=== PATIENT | female | born 1960 | race Caucasian/White ===

== ENCOUNTER → 2019-04-10 | Outpatient (CLI) | payer BC ==
[2019-04-10 12:23] LABS: BASO # 0.1 x10^3/uL (0.0-0.2); BASO % 1 % (0-3); EOS # 0.1 x10^3/uL (0.0-0.7); EOS % 1 % (0-3); HEMATOCRIT 36.3 % (36.0-47.0); HEMOGLOBIN 11.9 g/dL (12.0-15.5); LYMPH # 1.2 x10^3/uL (1.0-4.8); LYMPH % 16 % (24-48); MEAN CORPUSCULAR HEMOGLOBIN 30 pg (25-35); MEAN CORPUSCULAR HGB CONC 33 g/dL (31-37); MEAN CORPUSCULAR VOLUME 91 fL (79-100); MONO # 1.2 x10^3/uL (0.0-1.1); MONO % 15 % (0-9); NEUT % 67 % (31-73); PLATELET COUNT 367 x10^3/uL (140-400); RED BLOOD COUNT 3.98 x10^6/uL (3.50-5.40); RED CELL DISTRIBUTION WIDTH 14.3 % (11.5-14.5); WHITE BLOOD COUNT 7.5 x10^3/uL (4.0-11.0)
[2019-04-10 12:42] LABS: ALBUMIN 3.6 g/dL (3.4-5.0); ALBUMIN/GLOBULIN RATIO 0.9 (1.0-1.7); CALCIUM 9.1 mg/dL (8.5-10.1); GFR 57.1; POTASSIUM 3.9 mmol/L (3.5-5.1); TOTAL BILIRUBIN 0.5 mg/dL (0.2-1.0); TOTAL PROTEIN 7.6 g/dL (6.4-8.2)
[2019-04-10 12:43] LABS: CHOLESTEROL/HDL RATIO 2.7
[2019-04-10 12:53] LABS: FREE T4 0.94 ng/dL (0.76-1.46); THYROID STIM HORMONE (TSH) 4.681 uIU/mL (0.358-3.74)
== END | disposition home or self-care (01) ==
LOC: LAB 11:47
PROVIDERS: ATTEND Obstetrics & Gynecology
DX: Z01.411 Encounter for gynecological examination (general) (routine) with abnormal findings (principal); N95.2 Postmenopausal atrophic vaginitis; R19.03 Right lower quadrant abdominal swelling, mass and lump; I10 Essential (primary) hypertension
CPT/HCPCS: 36415; 80053; 80061; 84439; 84443; 85025

== ENCOUNTER → 2019-04-12 | Outpatient (CLI) | payer BC ==
--- NOTE | 2019-04-12 17:49 | RAD ---
PELVIS W/TV History: Right lower quadrant abdominal mass. Postmenopausal vaginitis. Comparison: None. Technique: Grayscale and color Doppler imaging of the pelvis was performed using transabdominal and transvaginal technique. Findings: The uterus measures 7.2 x 3.8 x 2.9 cm in length. Uterus has an unremarkable appearance. The endometrial stripe measures 0.4 mm. Bilateral ovaries not identified due to positioning and overlying bowel gas. Targeted ultrasound of the right lower quadrant anterior abdominal wall demonstrates small fat-containing hernia measures 0.9 cm. No adnexal masses are seen. No free fluid. IMPRESSION: 1. Right lower anterior abdominal wall fat-containing hernia. 2. Bilateral ovaries not identified. 3. Otherwise, unremarkable pelvic ultrasound. Electronically signed by: Danyel Roberts DO (04/12/2019 5:46 PM) [id number]
== END | disposition home or self-care (01) ==
LOC: US 15:24
PROVIDERS: ATTEND Obstetrics & Gynecology
DX: Z01.411 Encounter for gynecological examination (general) (routine) with abnormal findings (principal); K43.9 Ventral hernia without obstruction or gangrene; I10 Essential (primary) hypertension; N85.2 Hypertrophy of uterus; Z78.0 Asymptomatic menopausal state
CPT/HCPCS: 76830; 76856

== ENCOUNTER → 2019-05-03 | Outpatient (CLI) | payer BC ==
[~2019-05-03] MED LIST: CONTRAST GIVEN. MC PRN; IOHEXOL 240 MG/ML 50ML VIAL. PO ONE; IOHEXOL 300 MG/ML 100ML VIAL. IV ONE; LEVO75TA5 PO; NIFE30TA95 PO
--- NOTE | 2019-05-03 13:46 | RAD ---
PQRS Compliance Statement: One or more of the following individualized dose reduction techniques were utilized for this examination: 1. Automated exposure control 2. Adjustment of the mA and/or kV according to patient size 3. Use of iterative reconstruction technique CT abdomen/pelvis with contrast 05/03/2019 12:06 PM INDICATION: Inguinal hernia, abdominal wall hernia COMPARISON: None available TECHNIQUE: Multiple axial CT images of the abdomen and pelvis were obtained after the intravenous administration of 75 mL Omnipaque 300. Coronal and sagittal reformats are provided. FINDINGS: Pulmonary emphysematous changes are identified at the lung bases. There is a 7 mm solid noncalcified pulmonary nodule in the lateral right lower lobe (series 2, image 5). There is a small fat-containing posterior right diaphragmatic hernia. There is an oval solid noncalcified pulmonary nodule measuring 6 mm in the lateral left lower lobe (series 2, image 2). Heart size within normal limits. Liver, spleen, bilateral adrenal glands, pancreas and gallbladder are normal in appearance. Abdominal aorta is normal in course and caliber with dense calcified atheromatous plaque. There are no pathologically enlarged lymph nodes in abdomen and pelvis. There is no free fluid or free intraperitoneal air. Portal venous system appears widely patent. The kidneys enhance symmetrically. There is no suspicious renal mass. There is no hydronephrosis. There are no suspected calculi within the kidneys, ureters or urinary bladder. Mild bladder wall thickening may be secondary to underdistention versus chronic outlet obstruction. Uterus and adnexa are normal by CT. Colon is predominantly decompressed, limiting evaluation. Appendix is normal in appearance. Small to moderate-sized right inguinal hernia containing the appendix which is not inflamed. There is a small fat-containing umbilical hernia measuring 12 mm. No suspicious osseous abnormality is identified. There is moderate joint space narrowing the right hip with marginal osteophytosis and subcortical sclerosis and subcortical cystic change along the acetabulum suggestive of a to severe osteoarthrosis. There is a moderate-sized right hip joint effusion. IMPRESSION: 1. Small to moderate-sized right inguinal hernia containing a nondilated appendix. 2. Pulmonary emphysematous changes with solid noncalcified pulmonary nodules measuring up to 7 mm the right lateral lower lobe. 3-6 month follow-up chest CT is recommended to assess stability. 3. Moderate to severe right hip osteoarthrosis with moderate right hip joint effusion. Next on 4. Small umbilical hernia containing fat. Electronically signed by: Dianne Borges MD (05/03/2019 1:43 PM) [id number]
== END | disposition home or self-care (01) ==
LOC: CT 11:30
PROVIDERS: ATTEND Specialist
DX: K42.9 Umbilical hernia without obstruction or gangrene (principal); K40.90 Unilateral inguinal hernia, without obstruction or gangrene, not specified as recurrent; K44.9 Diaphragmatic hernia without obstruction or gangrene; J43.9 Emphysema, unspecified; R91.8 Other nonspecific abnormal finding of lung field; M16.11 Unilateral primary osteoarthritis, right hip; M25.451 Effusion, right hip; I70.0 Atherosclerosis of aorta
CPT/HCPCS: 74177; Q9966; Q9967

== ENCOUNTER → 2019-05-04 | Outpatient (CLI) | payer BC ==
[~2019-05-04] MED LIST changes: -CONTRAST GIVEN. MC PRN; -IOHEXOL 240 MG/ML 50ML VIAL. PO ONE; -IOHEXOL 300 MG/ML 100ML VIAL. IV ONE
[2019-05-04 13:55] LABS: BASO # 0.1 x10^3/uL (0.0-0.2); BASO % 1 % (0-3); EOS # 0.1 x10^3/uL (0.0-0.7); EOS % 2 % (0-3); HEMATOCRIT 37.3 % (36.0-47.0); HEMOGLOBIN 12.3 g/dL (12.0-15.5); LYMPH # 0.9 x10^3/uL (1.0-4.8); LYMPH % 11 % (24-48); MEAN CORPUSCULAR HEMOGLOBIN 29 pg (25-35); MEAN CORPUSCULAR HGB CONC 33 g/dL (31-37); MEAN CORPUSCULAR VOLUME 89 fL (79-100); MONO % 11 % (0-9); NEUT # 6.4 x10^3/uL (1.8-7.7); NEUT % 76 % (31-73); PLATELET COUNT 211 x10^3/uL (140-400); RED BLOOD COUNT 4.19 x10^6/uL (3.50-5.40); RED CELL DISTRIBUTION WIDTH 14.2 % (11.5-14.5); WHITE BLOOD COUNT 8.4 x10^3/uL (4.0-11.0)
[2019-05-04 14:07] LABS: PROTHROMBIN TIME PATIENT 11.9 SEC (11.7-14.0)
[2019-05-04 14:12] LABS: ALBUMIN 3.7 g/dL (3.4-5.0); ALBUMIN/GLOBULIN RATIO 0.9 (1.0-1.7); GFR 57.1; POTASSIUM 3.3 mmol/L (3.5-5.1); TOTAL BILIRUBIN 0.3 mg/dL (0.2-1.0); TOTAL PROTEIN 7.8 g/dL (6.4-8.2)
--- NOTE | 2019-05-07 06:40 | PREOP HP ---
DATE OF SERVICE: HISTORY OF PRESENT ILLNESS: The patient is referred by Stephane Bonner because of a mass that she has noted for 2-3 months in the right abdomen and groin. She states that this is becoming larger and she went to see her doctor about this and he sent her to me. She did have a sonogram, which showed a mass in the right lower quadrant of right anterior abdominal wall. She states that it contained fat, but she did not have a CT scan. PAST MEDICAL HISTORY: Shows normal childhood diseases. She does not have hypertension, diabetes, TB or asthma. Does take medicine recently just for thyroid condition, that she says she is hypothyroid. PAST SURGICAL HISTORY: She has never had surgery before and has no allergies to her knowledge. FAMILY HISTORY: Noncontributory. SOCIAL HISTORY: Shows that she was a heavy drinker, drank a lot of beer, got inebriated quite a bit, but has stopped that and is in a program for that. She did smoke a pack of cigarettes per day, but stopped that about 8 months ago and did not smoke since then and has never used illicit drugs. REVIEW OF SYSTEMS: Basically negative except for some anxiety. She does have a mass in the right abdomen, which hurts at times and this is mostly in the groin. PHYSICAL EXAMINATION: GENERAL: Shows an alert, nervous female in no acute distress. HEENT: Grossly normal. NECK: Supple. No goiter was noted. CHEST: Clear bilaterally to auscultation. BREASTS: Were not examined. HEART: Had normal heart tones with a regular rate. It was elevated at about 75-80 beats per minute. ABDOMEN: Grossly normal. No scars were noted, but in the inguinal area just medial to the pubis and along the internal inguinal tract, there is a mass which is increased and increased in intraabdominal pressure, you could see at greatest when she stood up. I did not try to reduce it as it was somewhat painful. The remainder of exam was negative. I think this is an inguinal hernia, not sure if this is direct or not, but the sonogram did say anterior abdominal wall in the right lower quadrant and I want to make certain about this. IMPRESSION: 1. Anxiety. 2. Right inguinal hernia. PLAN: The plan would be to repair the right inguinal hernia, but prior to this, we will get a CT of the abdomen to make certain there is no other hernia that needs to be fixed and no other abnormalities. I do not think this is a femoral hernia, but we would like to define it better before we do the surgery as the sonogram did say anterior abdominal wall in the lower abdomen on the right and this is more of an inguinal area, so we want to define this more clearly, so we can be precise at the time of surgery. JUSTIN MOYER MD DR: JOSETTE/agnes JOB#: [id number] / [id number]
== END | disposition home or self-care (01) ==
LOC: SURGPAT 12:29
PROVIDERS: ATTEND Specialist
DX: Z01.812 Encounter for preprocedural laboratory examination (principal); K40.90 Unilateral inguinal hernia, without obstruction or gangrene, not specified as recurrent
CPT/HCPCS: 36415; 80053; 85025; 85610

== ENCOUNTER → 2019-05-07 | Day surgery (SDC) | payer BC ==
[~2019-05-07] VITALS: Ht 170.2 cm; Wt 59.0 kg
[~2019-05-07] MED LIST changes: +BUPIVACAINE-EPI 0.5%-1:200000 MPF 30 ML VIAL. ONE; +DEXAMETHASONE SOD PHOS 4 MG/ML VIAL ONE; +GLYCOPYRROLATE 1 MG/5 ML VIAL. ONE; +HYDROcodone/APAP 7.5/325MG 1 TAB TABLET ONE; +HYDROcodone/APAP 7.5/325MG 1 TAB TABLET PO ONE; +HYDROmorphone 2 MG/ML VIAL IV PRN; +IPRATRPIUM/ALBUTEROL 0.5/2.5MG 3 ML NEBU. NEB ONE; +IV RINGERS,LACTATED 1000ML 1,000 ML IV SCH; +KETOROLAC 30 MG/ML VIAL. ONE; +LIDOCAINE 1% PF 2 ML VIAL. ID PRN; +LIDOCAINE 2% PF 5 ML VIAL. ONE; +MIDAZOLAM HCL/PF 2 MG/2 ML VIAL. ONE; +MORPHINE SULFATE 2 MG/ML VIAL. IV PRN; +NEOSTIGMINE METHYLSULFATE 5 MG/5 ML SYRINGE. ONE; +ONDANSETRON PF 4 MG/2 ML VIAL. IV PRN; +ONDANSETRON PF 4 MG/2 ML VIAL. ONE; +PROCHLORPERAZINE 10 MG/2 ML VIAL. IV PRN; +PROPOFOL 20 ML IV ONE; +ROCURONIUM 50 MG/5 ML VIAL. ONE; +SEVOFLURANE > 120 MINUTES. IH ONE; +ceFAZolin SODIUM IV Push 1 GM VIAL. IVP ONE; +fentaNYL PF VIAL 100 MCG/2 ML VIAL IV PRN; +fentaNYL PF VIAL 100 MCG/2 ML VIAL ONE
[2019-05-07 08:28] LABS: BASO # 0.1 x10^3/uL (0.0-0.2); BASO % 1 % (0-3); EOS # 0.1 x10^3/uL (0.0-0.7); EOS % 1 % (0-3); HEMATOCRIT 37.1 % (36.0-47.0); HEMOGLOBIN 12.4 g/dL (12.0-15.5); LYMPH # 0.7 x10^3/uL (1.0-4.8); LYMPH % 8 % (24-48); MEAN CORPUSCULAR HEMOGLOBIN 30 pg (25-35); MEAN CORPUSCULAR HGB CONC 33 g/dL (31-37); MEAN CORPUSCULAR VOLUME 89 fL (79-100); MONO # 1.5 x10^3/uL (0.0-1.1); MONO % 18 % (0-9); NEUT # 6.4 x10^3/uL (1.8-7.7); NEUT % 72 % (31-73); PLATELET COUNT 261 x10^3/uL (140-400); RED BLOOD COUNT 4.17 x10^6/uL (3.50-5.40); RED CELL DISTRIBUTION WIDTH 15.1 % (11.5-14.5); WHITE BLOOD COUNT 8.8 x10^3/uL (4.0-11.0)
[2019-05-07 08:36] LABS: CALCIUM 9.1 mg/dL (8.5-10.1); CREATININE 0.8 mg/dL (0.6-1.0); GFR 73.9; POTASSIUM 3.9 mmol/L (3.5-5.1)
[2019-05-07 08:42] LABS: ALBUMIN 3.8 g/dL (3.4-5.0); ALBUMIN/GLOBULIN RATIO 0.9 (1.0-1.7); TOTAL BILIRUBIN 0.6 mg/dL (0.2-1.0); TOTAL PROTEIN 7.9 g/dL (6.4-8.2)
[2019-05-07 08:53] LABS: PROTHROMBIN TIME PATIENT 12.2 SEC (11.7-14.0)
--- NOTE | 2019-05-07 09:33 | PDOC ---
SURGICAL PROGRESS NOTE Subjective NO CHANGE IN DICTATED H&P. Vital Signs Vital Signs Date Time Temp Pulse Resp B/P (MAP) Pulse Ox O2 Delivery O2 Flow Rate FiO2 05/07/19 08:00 98.0 95 18 165/90 96 Room Air 98.0 Labs Laboratory Tests Test 05/07/19 08:20 White Blood Count 8.8 x10^3/uL (4.0-11.0) Red Blood Count 4.17 x10^6/uL (3.50-5.40) Hemoglobin 12.4 g/dL (12.0-15.5) Hematocrit 37.1 % (36.0-47.0) Mean Corpuscular Volume 89 fL (79-100) Mean Corpuscular Hemoglobin 30 pg (25-35) Mean Corpuscular Hemoglobin Concent 33 g/dL (31-37) Red Cell Distribution Width 15.1 % (11.5-14.5) Platelet Count 261 x10^3/uL (140-400) Neutrophils (%) (Auto) 72 % (31-73) Lymphocytes (%) (Auto) 8 % (24-48) Monocytes (%) (Auto) 18 % (0-9) Eosinophils (%) (Auto) 1 % (0-3) Basophils (%) (Auto) 1 % (0-3) Neutrophils # (Auto) 6.4 x10^3/uL (1.8-7.7) Lymphocytes # (Auto) 0.7 x10^3/uL (1.0-4.8) Monocytes # (Auto) 1.5 x10^3/uL (0.0-1.1) Eosinophils # (Auto) 0.1 x10^3/uL (0.0-0.7) Basophils # (Auto) 0.1 x10^3/uL (0.0-0.2) Prothrombin Time 12.2 SEC (11.7-14.0) Prothromb Time International Ratio 0.9 (0.8-1.1) Activated Partial Thromboplast Time 28 SEC (24-38) Sodium Level 140 mmol/L (136-145) Potassium Level 3.9 mmol/L (3.5-5.1) Chloride Level 102 mmol/L (98-107) Carbon Dioxide Level 25 mmol/L (21-32) Anion Gap 13 (6-14) Blood Urea Nitrogen 11 mg/dL (7-20) Creatinine 0.8 mg/dL (0.6-1.0) Estimated GFR (Cockcroft-Gault) 73.9 BUN/Creatinine Ratio 14 (6-20) Glucose Level 90 mg/dL (70-99) Calcium Level 9.1 mg/dL (8.5-10.1) Total Bilirubin 0.6 mg/dL (0.2-1.0) Aspartate Amino Transf (AST/SGOT) 22 U/L (15-37) Alanine Aminotransferase (ALT/SGPT) 30 U/L (14-59) Alkaline Phosphatase 106 U/L (46-116) Total Protein 7.9 g/dL (6.4-8.2) Albumin 3.8 g/dL (3.4-5.0) Albumin/Globulin Ratio 0.9 (1.0-1.7) Laboratory Tests Test 05/07/19 08:20 White Blood Count 8.8 x10^3/uL (4.0-11.0) Red Blood Count 4.17 x10^6/uL (3.50-5.40) Hemoglobin 12.4 g/dL (12.0-15.5) Hematocrit 37.1 % (36.0-47.0) Mean Corpuscular Volume 89 fL (79-100) Mean Corpuscular Hemoglobin 30 pg (25-35) Mean Corpuscular Hemoglobin Concent 33 g/dL (31-37) Red Cell Distribution Width 15.1 % (11.5-14.5) Platelet Count 261 x10^3/uL (140-400) Neutrophils (%) (Auto) 72 % (31-73) Lymphocytes (%) (Auto) 8 % (24-48) Monocytes (%) (Auto) 18 % (0-9) Eosinophils (%) (Auto) 1 % (0-3) Basophils (%) (Auto) 1 % (0-3) Neutrophils # (Auto) 6.4 x10^3/uL (1.8-7.7) Lymphocytes # (Auto) 0.7 x10^3/uL (1.0-4.8) Monocytes # (Auto) 1.5 x10^3/uL (0.0-1.1) Eosinophils # (Auto) 0.1 x10^3/uL (0.0-0.7) Basophils # (Auto) 0.1 x10^3/uL (0.0-0.2) Prothrombin Time 12.2 SEC (11.7-14.0) Prothromb Time International Ratio 0.9 (0.8-1.1) Activated Partial Thromboplast Time 28 SEC (24-38) Sodium Level 140 mmol/L (136-145) Potassium Level 3.9 mmol/L (3.5-5.1) Chloride Level 102 mmol/L (98-107) Carbon Dioxide Level 25 mmol/L (21-32) Anion Gap 13 (6-14) Blood Urea Nitrogen 11 mg/dL (7-20) Creatinine 0.8 mg/dL (0.6-1.0) Estimated GFR (Cockcroft-Gault) 73.9 BUN/Creatinine Ratio 14 (6-20) Glucose Level 90 mg/dL (70-99) Calcium Level 9.1 mg/dL (8.5-10.1) Total Bilirubin 0.6 mg/dL (0.2-1.0) Aspartate Amino Transf (AST/SGOT) 22 U/L (15-37) Alanine Aminotransferase (ALT/SGPT) 30 U/L (14-59) Alkaline Phosphatase 106 U/L (46-116) Total Protein 7.9 g/dL (6.4-8.2) Albumin 3.8 g/dL (3.4-5.0) Albumin/Globulin Ratio 0.9 (1.0-1.7) JUSTIN MOYER MD May 07, 2019 09:33
--- NOTE | 2019-05-07 09:35 | PDOC ---
SURGICAL PROGRESS NOTE Subjective Op Note: Surgeon.................................................Mark Pre op diag............................................incar right inguinal hernia Post op diag..........................................Incarcerate right inguinal hernia Anesthesia............................................general Procedure.............................................repair incarcerated right inguinal hernia Drains................................................. none Blood loss............................................10ccv fluids....................................................see anesthesia sheet Condition..............................................satisfactory Vital Signs Vital Signs Date Time Temp Pulse Resp B/P (MAP) Pulse Ox O2 Delivery O2 Flow Rate FiO2 16/20 08:00 98.0 95 18 165/90 96 Room Air 98.0 Labs Laboratory Tests Test 05/07/19 08:20 White Blood Count 8.8 x10^3/uL (4.0-11.0) Red Blood Count 4.17 x10^6/uL (3.50-5.40) Hemoglobin 12.4 g/dL (12.0-15.5) Hematocrit 37.1 % (36.0-47.0) Mean Corpuscular Volume 89 fL (79-100) Mean Corpuscular Hemoglobin 30 pg (25-35) Mean Corpuscular Hemoglobin Concent 33 g/dL (31-37) Red Cell Distribution Width 15.1 % (11.5-14.5) Platelet Count 261 x10^3/uL (140-400) Neutrophils (%) (Auto) 72 % (31-73) Lymphocytes (%) (Auto) 8 % (24-48) Monocytes (%) (Auto) 18 % (0-9) Eosinophils (%) (Auto) 1 % (0-3) Basophils (%) (Auto) 1 % (0-3) Neutrophils # (Auto) 6.4 x10^3/uL (1.8-7.7) Lymphocytes # (Auto) 0.7 x10^3/uL (1.0-4.8) Monocytes # (Auto) 1.5 x10^3/uL (0.0-1.1) Eosinophils # (Auto) 0.1 x10^3/uL (0.0-0.7) Basophils # (Auto) 0.1 x10^3/uL (0.0-0.2) Prothrombin Time 12.2 SEC (11.7-14.0) Prothromb Time International Ratio 0.9 (0.8-1.1) Activated Partial Thromboplast Time 28 SEC (24-38) Sodium Level 140 mmol/L (136-145) Potassium Level 3.9 mmol/L (3.5-5.1) Chloride Level 102 mmol/L (98-107) Carbon Dioxide Level 25 mmol/L (21-32) Anion Gap 13 (6-14) Blood Urea Nitrogen 11 mg/dL (7-20) Creatinine 0.8 mg/dL (0.6-1.0) Estimated GFR (Cockcroft-Gault) 73.9 BUN/Creatinine Ratio 14 (6-20) Glucose Level 90 mg/dL (70-99) Calcium Level 9.1 mg/dL (8.5-10.1) Total Bilirubin 0.6 mg/dL (0.2-1.0) Aspartate Amino Transf (AST/SGOT) 22 U/L (15-37) Alanine Aminotransferase (ALT/SGPT) 30 U/L (14-59) Alkaline Phosphatase 106 U/L (46-116) Total Protein 7.9 g/dL (6.4-8.2) Albumin 3.8 g/dL (3.4-5.0) Albumin/Globulin Ratio 0.9 (1.0-1.7) Laboratory Tests Test 05/07/19 08:20 White Blood Count 8.8 x10^3/uL (4.0-11.0) Red Blood Count 4.17 x10^6/uL (3.50-5.40) Hemoglobin 12.4 g/dL (12.0-15.5) Hematocrit 37.1 % (36.0-47.0) Mean Corpuscular Volume 89 fL (79-100) Mean Corpuscular Hemoglobin 30 pg (25-35) Mean Corpuscular Hemoglobin Concent 33 g/dL (31-37) Red Cell Distribution Width 15.1 % (11.5-14.5) Platelet Count 261 x10^3/uL (140-400) Neutrophils (%) (Auto) 72 % (31-73) Lymphocytes (%) (Auto) 8 % (24-48) Monocytes (%) (Auto) 18 % (0-9) Eosinophils (%) (Auto) 1 % (0-3) Basophils (%) (Auto) 1 % (0-3) Neutrophils # (Auto) 6.4 x10^3/uL (1.8-7.7) Lymphocytes # (Auto) 0.7 x10^3/uL (1.0-4.8) Monocytes # (Auto) 1.5 x10^3/uL (0.0-1.1) Eosinophils # (Auto) 0.1 x10^3/uL (0.0-0.7) Basophils # (Auto) 0.1 x10^3/uL (0.0-0.2) Prothrombin Time 12.2 SEC (11.7-14.0) Prothromb Time International Ratio 0.9 (0.8-1.1) Activated Partial Thromboplast Time 28 SEC (24-38) Sodium Level 140 mmol/L (136-145) Potassium Level 3.9 mmol/L (3.5-5.1) Chloride Level 102 mmol/L (98-107) Carbon Dioxide Level 25 mmol/L (21-32) Anion Gap 13 (6-14) Blood Urea Nitrogen 11 mg/dL (7-20) Creatinine 0.8 mg/dL (0.6-1.0) Estimated GFR (Cockcroft-Gault) 73.9 BUN/Creatinine Ratio 14 (6-20) Glucose Level 90 mg/dL (70-99) Calcium Level 9.1 mg/dL (8.5-10.1) Total Bilirubin 0.6 mg/dL (0.2-1.0) Aspartate Amino Transf (AST/SGOT) 22 U/L (15-37) Alanine Aminotransferase (ALT/SGPT) 30 U/L (14-59) Alkaline Phosphatase 106 U/L (46-116) Total Protein 7.9 g/dL (6.4-8.2) Albumin 3.8 g/dL (3.4-5.0) Albumin/Globulin Ratio 0.9 (1.0-1.7) JUSTIN MOYER MD May 07, 2019 09:35
--- NOTE | 2019-05-07 09:36 | PREOP HP ---
DATE OF SERVICE: 05/07/2019 HISTORY OF PRESENT ILLNESS: The patient is referred by Stephane Bonner because of a mass that she has noted for 2-3 months in the right abdomen and groin. She states that this is becoming larger and she went to see her doctor about this and he sent her to me. She did have a sonogram, which showed a mass in the right lower quadrant of right anterior abdominal wall. She states that it contained fat, but she did not have a CT scan. PAST MEDICAL HISTORY: Shows normal childhood diseases. She does not have hypertension, diabetes, TB or asthma. Does take medicine recently just for thyroid condition, that she says she is hypothyroid. PAST SURGICAL HISTORY: She has never had surgery before and has no allergies to her knowledge. FAMILY HISTORY: Noncontributory. SOCIAL HISTORY: Shows that she was a heavy drinker, drank a lot of beer, got inebriated quite a bit, but has stopped that and is in a program for that. She did smoke a pack of cigarettes per day, but stopped that about 8 months ago and did not smoke since then and has never used illicit drugs. REVIEW OF SYSTEMS: Basically negative except for some anxiety. She does have a mass in the right abdomen, which hurts at times and this is mostly in the groin. PHYSICAL EXAMINATION: GENERAL: Shows an alert, nervous female in no acute distress. HEENT: Grossly normal. NECK: Supple. No goiter was noted. CHEST: Clear bilaterally to auscultation. BREASTS: Were not examined. HEART: Had normal heart tones with a regular rate. It was elevated at about 75-80 beats per minute. ABDOMEN: Grossly normal. No scars were noted, but in the inguinal area just medial to the pubis and along the internal inguinal tract, there is a mass which is increased and increased in intraabdominal pressure, you could see at greatest when she stood up. I did not try to reduce it as it was somewhat painful. The remainder of exam was negative. I think this is an inguinal hernia, not sure if this is direct or not, but the sonogram did say anterior abdominal wall in the right lower quadrant and I want to make certain about this. IMPRESSION: 1. Anxiety. 2. Right inguinal hernia. PLAN: The plan would be to repair the right inguinal hernia, but prior to this, we will get a CT of the abdomen to make certain there is no other hernia that needs to be fixed and no other abnormalities. I do not think this is a femoral hernia, but we would like to define it better before we do the surgery as the sonogram did say anterior abdominal wall in the lower abdomen on the right and this is more of an inguinal area, so we want to define this more clearly, so we can be precise at the time of surgery. JUSTIN OMYER MD DR: JOSETTE/nts JOB#: [id number] / [id number]
--- NOTE | 2019-05-07 12:25 | DISCH ---
DISCHARGE INSTRUCTIONS Condition on Discharge Condition on Discharge: Stable Activity After Discharge Activity Instructions for Disc: Avoid exertion Diet after Discharge Diet after Discharge: Clear Liquid Wound Incision Care Other wound/incision instructi: leave wound on and may shower Follow-Up Follow up with: call and make appt to see me in 14 days JUSTIN MOYER MD May 07, 2019 12:25
[2019-05-07 12:30] VITALS: BP 148/75
--- NOTE | 2019-05-08 00:39 | OP ---
DATE OF SURGERY: 05/07/2019 SURGEON: Sesar Moyer MD. PREOPERATIVE DIAGNOSIS: Incarcerated right inguinal hernia. POSTOPERATIVE DIAGNOSIS: Incarcerated right inguinal hernia. ANESTHESIA: General. PROCEDURE: Repair of incarcerated right inguinal hernia. TECHNIQUE: Under general anesthesia, the patient was properly prepped and draped in routine fashion. An incision was made, following the skin lines, in the right inguinal area with a 15 blade. We carried this down through the skin into the subcutaneous. We then went through the subcutaneous with Metzenbaum scissors and cautery down to the fascia. We then made a small incision in the direction of the fibers about 2-3 inches above the external inguinal ring. We then spread scissors under this and opened the external oblique aponeurosis. We cleaned the structures away from it, which was also the hernia sac from the medial and lateral edges of the Poupart's ligament. We then encircled the area at the pubic tubercle and then we were able to identify the sac, cut it away from the surrounding structures using Metzenbaum scissors and also pushing with gauze and had it completely freed up. We then inverted this, it did not appear to be a direct hernia, but indirect. We then inverted this and placed the extra-large PerFix plug there and sutured in place using 3-0 Vicryl. We then placed a patch over the area to keep the ilioinguinal nerve out of the area. We started the pubic tubercle with 0 Prolene, two of them ran, one laterally taking the shelving edge of Poupart's ligament well past the internal inguinal ring and the other one medially, taking the transversalis fascia with gauze and placing it back up to past the internal inguinal ring back to Poupart's ligament. We had a good posterior closure and reduction of the hernia with the PerFix plug and the procedure was basically terminated. We injected 0.5% Marcaine with epinephrine for pain control. We then irrigated the wound with saline. We then closed the external oblique aponeurosis using 2-0 Prolene. The subcutaneous was irrigated again with saline and approximated with 4-0 Vicryl and then the skin was closed using a subcuticular 5-0 Vicryl. The procedure was now terminated and sterile Tegaderm dressing was applied. All bleeding had stopped. The blood loss was less than 8-9 mL. Fluids given can be obtained from the anesthesia sheet. No drains were used and the condition of the patient was satisfactory as she was returned to the recovery room. It should be noted that the incarceration reduced once the patient was asleep and we got the sac mobilized, and we did not have any trouble reducing it at that point. The procedure was now terminated. SESAR MOYER MD DR: JOSETTE/agnes JOB#: [id number] / [id number]
== END ==
LOC: SURG 07:26
PROVIDERS: ATTEND Specialist
DX: K40.30 Unilateral inguinal hernia, with obstruction, without gangrene, not specified as recurrent (principal); I10 Essential (primary) hypertension; E11.9 Type 2 diabetes mellitus without complications; J45.909 Unspecified asthma, uncomplicated; F41.9 Anxiety disorder, unspecified; E03.9 Hypothyroidism, unspecified; Z72.89 Other problems related to lifestyle; Z79.01 Long term (current) use of anticoagulants; Z87.891 Personal history of nicotine dependence; Z79.84 Long term (current) use of oral hypoglycemic drugs
CPT/HCPCS: 36415; 49507; 80053; 85025; 85610; 85730; 94640; A7015; C1781; J0690; J1100; J1885; J2001; J2250; J2405; J2704; J2710; J3010; J3490; J7120

== ENCOUNTER → 2019-07-13 | Outpatient (CLI) | payer BC ==
[2019-05-07 12:30] VITALS: BP 148/75
[~2019-07-13] MED LIST changes: -BUPIVACAINE-EPI 0.5%-1:200000 MPF 30 ML VIAL. ONE; +CHLO1TAB PO; -DEXAMETHASONE SOD PHOS 4 MG/ML VIAL ONE; -GLYCOPYRROLATE 1 MG/5 ML VIAL. ONE; +HYDR-2765 PO; -HYDROcodone/APAP 7.5/325MG 1 TAB TABLET ONE; -HYDROcodone/APAP 7.5/325MG 1 TAB TABLET PO ONE; -HYDROmorphone 2 MG/ML VIAL IV PRN; -IPRATRPIUM/ALBUTEROL 0.5/2.5MG 3 ML NEBU. NEB ONE; -IV RINGERS,LACTATED 1000ML 1,000 ML IV SCH; -KETOROLAC 30 MG/ML VIAL. ONE; -LIDOCAINE 1% PF 2 ML VIAL. ID PRN; -LIDOCAINE 2% PF 5 ML VIAL. ONE; +LISI10TA2 PO; -MIDAZOLAM HCL/PF 2 MG/2 ML VIAL. ONE; -MORPHINE SULFATE 2 MG/ML VIAL. IV PRN; -NEOSTIGMINE METHYLSULFATE 5 MG/5 ML SYRINGE. ONE; -ONDANSETRON PF 4 MG/2 ML VIAL. IV PRN; -ONDANSETRON PF 4 MG/2 ML VIAL. ONE; -PROCHLORPERAZINE 10 MG/2 ML VIAL. IV PRN; -PROPOFOL 20 ML IV ONE; -ROCURONIUM 50 MG/5 ML VIAL. ONE; -SEVOFLURANE > 120 MINUTES. IH ONE; -ceFAZolin SODIUM IV Push 1 GM VIAL. IVP ONE; -fentaNYL PF VIAL 100 MCG/2 ML VIAL IV PRN; -fentaNYL PF VIAL 100 MCG/2 ML VIAL ONE
== END | disposition home or self-care (01) ==
LOC: SURGPAT 12:23
PROVIDERS: ATTEND Specialist
DX: Z01.818 Encounter for other preprocedural examination (principal); Z11.59 Encounter for screening for other viral diseases; K42.9 Umbilical hernia without obstruction or gangrene
CPT/HCPCS: C9803; U0003; 36415

== ENCOUNTER 2019-07-17 07:32 | Day surgery (SDC) | payer BC ==
[~2019-07-17] VITALS: Ht 167.6 cm; Wt 63.5 kg
--- NOTE | 2019-07-17 00:24 | HP ---
ADMIT DATE: HISTORY OF PRESENT ILLNESS: The patient comes to the hospital because of painful mass at the umbilicus. It gives her pain from time to time and she has been examined and found to have a hernia that needs repair. PAST MEDICAL HISTORY: Has included a, recent about 2 months ago, repair of a right inguinal hernia. She has done well since then and has no symptoms. She has had normal childhood diseases. She does note hypertension, heart disease, TB, asthma or other diseases to her knowledge. She did state to have a thyroid condition, and she stated that she was hypothyroid. PAST SURGICAL HISTORY: Has been the right inguinal hernia repair. FAMILY HISTORY: Noncontributory. SOCIAL HISTORY: Shows that she did drink a lot of beer and got inebriated, but she stopped that and is in a program for it. She did smoke about a pack of cigarettes a day, but she stopped about 9-12 months ago. REVIEW OF SYSTEMS: Review of systems was negative except for some pain at this mass, which she thought was normal at the umbilicus. She does have difficulties with increase in intraabdominal pressure and it was noted when she had the hernia repair. PHYSICAL EXAMINATION: GENERAL: Shows an alert female in no acute distress. She was somewhat nervous. HEAD, EYES, EARS, NOSE AND THROAT: Grossly normal. NECK: Supple, no goiter was noted. CHEST: Clear bilaterally to auscultation. BREASTS: Not examined. HEART: Had no friction rubs and the rate was 72 beats per minute and regular. ABDOMEN: No organomegaly was noted. There is a scar of her right inguinal hernia repair. No other scars. She did have a mass at the umbilicus, which could not be reduced and it was somewhat tender when palpated. She did not have an acute abdomen or anything to suggest peritoneal irritation. EXTREMITIES: Grossly normal. PELVIC: Not done. RECTAL: Not done. IMPRESSION: Umbilical hernia. Plan is to repair the umbilical hernia with her consent. She understands the risk of the surgery and some of the complications including infection and intra-abdominal bowel injury, which would be unlikely, but is always a possibility. JUSTIN MOYER MD DR: JOSETTE/agnes JOB#: [id number] / [id number]
[~2019-07-17 07:32] MED LIST changes: +BUPIVACAINE-EPI 0.5%-1:200000 MPF 30 ML VIAL. ONE; -HYDR-2765 PO; +HYDROmorphone 2 MG/ML VIAL IV PRN; +IV RINGERS,LACTATED 1000ML 1,000 ML IV SCH; +LIDOCAINE 1% PF 2 ML VIAL. ID PRN; +MORPHINE SULFATE 2 MG/ML VIAL. IV PRN; +ONDANSETRON PF 4 MG/2 ML VIAL. IV PRN; +PROCHLORPERAZINE 10 MG/2 ML VIAL. IV PRN; +ceFAZolin SODIUM IV Push 1 GM VIAL. IVP PRN; +fentaNYL PF VIAL 100 MCG/2 ML VIAL IV PRN
[2019-07-17 08:12] LABS: BASO # 0.1 x10^3/uL (0.0-0.2); BASO % 1 % (0-3); EOS # 0.2 x10^3/uL (0.0-0.7); EOS % 3 % (0-3); HEMATOCRIT 40.5 % (36.0-47.0); HEMOGLOBIN 13.5 g/dL (12.0-15.5); LYMPH # 1.1 x10^3/uL (1.0-4.8); LYMPH % 19 % (24-48); MEAN CORPUSCULAR HEMOGLOBIN 29 pg (25-35); MEAN CORPUSCULAR HGB CONC 33 g/dL (31-37); MEAN CORPUSCULAR VOLUME 87 fL (79-100); MONO % 17 % (0-9); NEUT # 3.6 x10^3/uL (1.8-7.7); NEUT % 60 % (31-73); PLATELET COUNT 332 x10^3/uL (140-400); RED BLOOD COUNT 4.67 x10^6/uL (3.50-5.40); RED CELL DISTRIBUTION WIDTH 16.2 % (11.5-14.5)
[2019-07-17 08:20] LABS: PROTHROMBIN TIME PATIENT 12.2 SEC (11.7-14.0)
[2019-07-17 08:23] LABS: CALCIUM 9.1 mg/dL (8.5-10.1); CREATININE 0.9 mg/dL (0.6-1.0); GFR 64.5; POTASSIUM 4.2 mmol/L (3.5-5.1)
[2019-07-17 08:28] LABS: TOTAL BILIRUBIN 0.4 mg/dL (0.2-1.0); TOTAL PROTEIN 8.2 g/dL (6.4-8.2)
[2019-07-17] MEDS ORDERED: IPRATRPIUM/ALBUTEROL 0.5/2.5MG 3 ML NEBU. NEB ONE (09:00)
[2019-07-17] MEDS ORDERED: fentaNYL PF VIAL 100 MCG/2 ML VIAL ONE ×3 (09:07→11:03)
[2019-07-17] MEDS ORDERED: ROCURONIUM 50 MG/5 ML VIAL. ONE (09:07)
[2019-07-17] MEDS ORDERED: MIDAZOLAM HCL/PF 2 MG/2 ML VIAL. ONE (09:29)
--- NOTE | 2019-07-17 09:32 | PDOC ---
SURGICAL PROGRESS NOTE Subjective Op NOte: Surgeon................................................Mark Pre op diag............................................incarcerated umbilical hernia Post op diag..........................................same Anesthesia............................................general Procedure.............................................repair incarcerated umbilical hernia with absorbable mesh with seprafilm coating. Drains..................................................none Fluids...................................................see anesthesia sheet Blood loss............................................10cc Condition..............................................satisfactory Vital Signs Vital Signs Date Time Temp Pulse Resp B/P (MAP) Pulse Ox O2 Delivery O2 Flow Rate FiO2 07/17/19 08:14 97.5 84 20 177/93 97 Room Air 97.5 Labs Laboratory Tests Test 07/17/19 08:00 White Blood Count 6.0 x10^3/uL (4.0-11.0) Red Blood Count 4.67 x10^6/uL (3.50-5.40) Hemoglobin 13.5 g/dL (12.0-15.5) Hematocrit 40.5 % (36.0-47.0) Mean Corpuscular Volume 87 fL (79-100) Mean Corpuscular Hemoglobin 29 pg (25-35) Mean Corpuscular Hemoglobin Concent 33 g/dL (31-37) Red Cell Distribution Width 16.2 % (11.5-14.5) Platelet Count 332 x10^3/uL (140-400) Neutrophils (%) (Auto) 60 % (31-73) Lymphocytes (%) (Auto) 19 % (24-48) Monocytes (%) (Auto) 17 % (0-9) Eosinophils (%) (Auto) 3 % (0-3) Basophils (%) (Auto) 1 % (0-3) Neutrophils # (Auto) 3.6 x10^3/uL (1.8-7.7) Lymphocytes # (Auto) 1.1 x10^3/uL (1.0-4.8) Monocytes # (Auto) 1.0 x10^3/uL (0.0-1.1) Eosinophils # (Auto) 0.2 x10^3/uL (0.0-0.7) Basophils # (Auto) 0.1 x10^3/uL (0.0-0.2) Prothrombin Time 12.2 SEC (11.7-14.0) Prothromb Time International Ratio 0.9 (0.8-1.1) Sodium Level 133 mmol/L (136-145) Potassium Level 4.2 mmol/L (3.5-5.1) Chloride Level 97 mmol/L (98-107) Carbon Dioxide Level 31 mmol/L (21-32) Anion Gap 5 (6-14) Blood Urea Nitrogen 13 mg/dL (7-20) Creatinine 0.9 mg/dL (0.6-1.0) Estimated GFR (Cockcroft-Gault) 64.5 BUN/Creatinine Ratio 14 (6-20) Glucose Level 101 mg/dL (70-99) Calcium Level 9.1 mg/dL (8.5-10.1) Total Bilirubin 0.4 mg/dL (0.2-1.0) Aspartate Amino Transf (AST/SGOT) 30 U/L (15-37) Alanine Aminotransferase (ALT/SGPT) 32 U/L (14-59) Alkaline Phosphatase 113 U/L (46-116) Total Protein 8.2 g/dL (6.4-8.2) Albumin 4.0 g/dL (3.4-5.0) Albumin/Globulin Ratio 1.0 (1.0-1.7) Laboratory Tests Test 07/17/19 08:00 White Blood Count 6.0 x10^3/uL (4.0-11.0) Red Blood Count 4.67 x10^6/uL (3.50-5.40) Hemoglobin 13.5 g/dL (12.0-15.5) Hematocrit 40.5 % (36.0-47.0) Mean Corpuscular Volume 87 fL (79-100) Mean Corpuscular Hemoglobin 29 pg (25-35) Mean Corpuscular Hemoglobin Concent 33 g/dL (31-37) Red Cell Distribution Width 16.2 % (11.5-14.5) Platelet Count 332 x10^3/uL (140-400) Neutrophils (%) (Auto) 60 % (31-73) Lymphocytes (%) (Auto) 19 % (24-48) Monocytes (%) (Auto) 17 % (0-9) Eosinophils (%) (Auto) 3 % (0-3) Basophils (%) (Auto) 1 % (0-3) Neutrophils # (Auto) 3.6 x10^3/uL (1.8-7.7) Lymphocytes # (Auto) 1.1 x10^3/uL (1.0-4.8) Monocytes # (Auto) 1.0 x10^3/uL (0.0-1.1) Eosinophils # (Auto) 0.2 x10^3/uL (0.0-0.7) Basophils # (Auto) 0.1 x10^3/uL (0.0-0.2) Prothrombin Time 12.2 SEC (11.7-14.0) Prothromb Time International Ratio 0.9 (0.8-1.1) Sodium Level 133 mmol/L (136-145) Potassium Level 4.2 mmol/L (3.5-5.1) Chloride Level 97 mmol/L (98-107) Carbon Dioxide Level 31 mmol/L (21-32) Anion Gap 5 (6-14) Blood Urea Nitrogen 13 mg/dL (7-20) Creatinine 0.9 mg/dL (0.6-1.0) Estimated GFR (Cockcroft-Gault) 64.5 BUN/Creatinine Ratio 14 (6-20) Glucose Level 101 mg/dL (70-99) Calcium Level 9.1 mg/dL (8.5-10.1) Total Bilirubin 0.4 mg/dL (0.2-1.0) Aspartate Amino Transf (AST/SGOT) 30 U/L (15-37) Alanine Aminotransferase (ALT/SGPT) 32 U/L (14-59) Alkaline Phosphatase 113 U/L (46-116) Total Protein 8.2 g/dL (6.4-8.2) Albumin 4.0 g/dL (3.4-5.0) Albumin/Globulin Ratio 1.0 (1.0-1.7) JUSTIN MOYER MD July 17, 2019 09:32
[2019-07-17] MEDS ORDERED: ONDANSETRON PF 4 MG/2 ML VIAL. ONE (10:54)
[2019-07-17] MEDS ORDERED: SEVOFLURANE > 120 MINUTES. IH ONE (10:54)
[2019-07-17] MEDS ORDERED: LIDOCAINE 2% PF 5 ML VIAL. ONE ×2 (10:54→10:59)
[2019-07-17] MEDS ORDERED: PROPOFOL 10 MG/ML (20ML) VIAL. IV ONE (10:54)
[2019-07-17] MEDS ORDERED: NEOSTIGMINE METHYLSULFATE 5 MG/5 ML SYRINGE. ONE (10:54)
[2019-07-17] MEDS ORDERED: GLYCOPYRROLATE 1 MG/5 ML VIAL. ONE (10:54)
[2019-07-17] MEDS ORDERED: DEXAMETHASONE SOD PHOS 4 MG/ML VIAL ONE (10:54)
[2019-07-17] MEDS ORDERED: KETOROLAC 30 MG/ML VIAL. ONE (11:03)
--- NOTE | 2019-07-17 11:07 | DISCH ---
DISCHARGE INSTRUCTIONS Condition on Discharge Condition on Discharge: Stable Activity After Discharge Activity Instructions for Disc: Avoid exertion Diet after Discharge Diet after Discharge: Clear Liquid Wound Incision Care Wound/Incision Care: Other, see below Other wound/incision instructi: may shower leave sressing on as long as possible Follow-Up Follow up with: wts in 2 weeks JUSTIN MOYER MD July 17, 2019 11:07
[2019-07-17] MEDS ORDERED: LABETALOL 20 MG/4 ML DISP.SYRIN. IVP PRN (11:22)
[2019-07-17] MEDS ORDERED: HYDROcodone/APAP 7.5/325MG 1 TAB TABLET PO ONE (11:30)
[2019-07-17] MEDS ORDERED: HYDR-2765 PO (11:45)
[2019-07-17 11:49] VITALS: BP 163/81
--- NOTE | 2019-07-18 02:21 | OP ---
DATE OF SURGERY: SURGEON: Sesar Moyer MD POSTOPERATIVE DIAGNOSIS: Incarcerated umbilical hernia. POSTOPERATIVE DIAGNOSIS: Incarcerated umbilical hernia. ANESTHESIA: General. PROCEDURE: Repair of incarcerated ventral umbilical hernia. OPERATIVE TECHNIQUE: Under general anesthesia, the patient was properly prepped and draped in routine fashion. The hernia appeared to be at and below umbilicus. Therefore, an infraumbilical smile type incision was made with a #15 blade. This was carried just under the umbilicus and through the skin. We then used Metzenbaum scissors to go into the tissue beneath and identified the sac. The sac was fairly large, about as big as a walnut. We dissected it down to the neck and there were adhesions and we could not reduce it. The adhesions were divided and the sac was able to be then inverted and put back into the abdomen. A 4 cm absorbable disk made by [employer] with Seprafilm on the port to face the inside of the abdomen was placed into the small opening where the hernia was pulled up, so that it lay flat against the anterior abdominal wall. Using interrupted #0 Prolene sutures, we sutured the edges of the hernia together in a transverse fashion incorporating tag off the disk and also the middle portion of the disk on the anterior area of the disk. With this, we afforded good approximation of the wound and also pulling the disk, so that it would be flat against the anterior abdominal wall. This having been done, we then inspected the area, all was well and we tied the sutures. A 0.5% Marcaine and epinephrine was used to inject the area around the fascia and then the wound was irrigated with saline and then the suture knots were sewn over taking the fat and subcutaneous tissue over these so they would not be prominent. We then closed the subcutaneous and this was done with interrupted 4-0 Vicryl. The skin was closed using a subcuticular 5-0 Vicryl and a sterile Tegaderm dressing was applied. The procedure was terminated as sterile dressing had been applied. SESAR MOYER MD DR: JOSETTE/agnes JOB#: [id number] / [id number]
== END 2019-07-17 12:27 | disposition home or self-care (01) ==
LOC: SURG 07:32
PROVIDERS: ATTEND Specialist
DX: K42.0 Umbilical hernia with obstruction, without gangrene (principal); I10 Essential (primary) hypertension; E03.9 Hypothyroidism, unspecified; F41.9 Anxiety disorder, unspecified; F17.210 Nicotine dependence, cigarettes, uncomplicated; Z79.899 Other long term (current) drug therapy; Z98.890 Other specified postprocedural states
CPT/HCPCS: 36415; 49587; 80053; 85025; 85610; 94640; A7015; C1781; J0690; J1100; J1885; J2250; J2405; J2704; J2710; J3010; J3490; J7120

== ENCOUNTER → 2020-11-24 | Outpatient (CLI) | payer BC ==
[~2020-11-24] MED LIST changes: +ACET500T68 PO; +ASCO500C9 PO; -BUPIVACAINE-EPI 0.5%-1:200000 MPF 30 ML VIAL. ONE; +HYDR-2765 PO; -HYDROmorphone 2 MG/ML VIAL IV PRN; -IV RINGERS,LACTATED 1000ML 1,000 ML IV SCH; -LIDOCAINE 1% PF 2 ML VIAL. ID PRN; +LISI-130 PO; +LISI10TA16 PO; -LISI10TA2 PO; -MORPHINE SULFATE 2 MG/ML VIAL. IV PRN; +NAPR-514 PO; -ONDANSETRON PF 4 MG/2 ML VIAL. IV PRN; -PROCHLORPERAZINE 10 MG/2 ML VIAL. IV PRN; +VENTOLIN HFA18 GM INH; -ceFAZolin SODIUM IV Push 1 GM VIAL. IVP PRN; -fentaNYL PF VIAL 100 MCG/2 ML VIAL IV PRN
[2020-11-24 09:33] LABS: BASO # 0.1 x10^3/uL (0.0-0.2); BASO % 1 % (0-3); EOS # 0.2 x10^3/uL (0.0-0.7); EOS % 3 % (0-3); HEMATOCRIT 37.8 % (36.0-47.0); HEMOGLOBIN 12.7 g/dL (12.0-15.5); LYMPH # 1.2 x10^3/uL (1.0-4.8); LYMPH % 15 % (24-48); MEAN CORPUSCULAR HEMOGLOBIN 31 pg (25-35); MEAN CORPUSCULAR HGB CONC 34 g/dL (31-37); MEAN CORPUSCULAR VOLUME 94 fL (79-100); MONO # 0.8 x10^3/uL (0.0-1.1); MONO % 10 % (0-9); NEUT % 72 % (31-73); PLATELET COUNT 322 x10^3/uL (140-400); RED BLOOD COUNT 4.03 x10^6/uL (3.50-5.40); RED CELL DISTRIBUTION WIDTH 13.1 % (11.5-14.5); WHITE BLOOD COUNT 8.3 x10^3/uL (4.0-11.0)
[2020-11-24 09:45] LABS: ALBUMIN 4.1 g/dL (3.4-5.0); CALCIUM 9.6 mg/dL (8.5-10.1); CREATININE 0.8 mg/dL (0.6-1.0); GFR 73.4
[2020-11-24 09:50] LABS: PROTHROMBIN TIME PATIENT 12.5 SEC (11.7-14.0)
--- NOTE | 2020-11-24 12:28 | EKG ---
[facility] [address] [place] [address] Test Date: 2020-11-24 Test Time: 12:26:04 Pat Name: TODD ASHFORD Department: Room: Gender: F Timber Poisoner: MARCELA : 1960 Requested By: MILLA BARRON Order Number: [id number] Reading MD: Joshua Malone Measurements Intervals [place] Rate: 81 P: 74 FL: 144 QRS: 64 QRSD: 80 T: 68 QT: 360 QTc: 424 Interpretive Statements SINUS RHYTHM NORMAL ECG RI6.02 No previous ECG available for comparison Electronically Signed On 11-25-2020 13:24:42 CDT by Joshua Malone
--- NOTE | 2020-11-24 13:40 | RAD ---
EXAM: Chest, 2 views. HISTORY: Hypertension. COMPARISON: None. FINDINGS: 2 views of chest are obtained. There is hyperinflation due to emphysema. There is right upp er lobe pleural parenchymal scarring. There is no pleural effusion or pneumothorax. The heart is norm al in size. IMPRESSION: Emphysema with right upper lobe pleural parenchymal scarring. Electronically signed by: Lilly Michaud MD (11/24/2020 1:38 PM) [id number]
[2020-11-24 23:08] LABS: HEMOGLOBIN A1C 5.6 % (4.8-5.6)
== END ==
LOC: SURGPAT 12:34
PROVIDERS: ATTEND Orthopaedic Surgery
DX: Z01.818 Encounter for other preprocedural examination (principal); J43.9 Emphysema, unspecified; J98.11 Atelectasis; J98.4 Other disorders of lung; M16.11 Unilateral primary osteoarthritis, right hip
CPT/HCPCS: 36415; 71046; 80048; 82040; 82306; 83036; 85025; 85610; 85651; 85730; 87641; 93005

== ENCOUNTER → 2020-12-05 | Outpatient (CLI) | payer BC ==
[~2020-12-05] MED LIST changes: +MELO15TA6 PO; +OXYC5CAP PO; +POLY17PO29 PO; +TRAM50TA PO; +WARF-31 PO
== END ==
LOC: LAB 15:13
PROVIDERS: ATTEND Orthopaedic Surgery
DX: Z01.812 Encounter for preprocedural laboratory examination (principal); M16.11 Unilateral primary osteoarthritis, right hip
CPT/HCPCS: 36415; 80307

== ENCOUNTER 2020-12-09 10:49 | Observation (INO) | payer BC ==
[2020-11-26 14:20] VITALS: BP 192/108
[~2020-12-09] VITALS: Ht 167.6 cm; Wt 58.0 kg
[2020-12-09] VITALS (8 sets, daily range): BP systolic 106–206; BP diastolic 62–98
[~2020-12-09 10:49] MED LIST changes: +ACETAMINOPHEN 500 MG TABLET PO PRN; +GABAPENTIN 300 MG CAPSULE. PO PRN; +HYDROmorphone 2 MG/ML VIAL IVP PRN; -MELO15TA6 PO; +MELOXICAM 7.5 MG TABLET PO PRN; +MORPHINE SULFATE 2 MG/ML INJ. IVP PRN; +MORPHINE SULFATE 5 MG, KETOROLAC 30MG VIAL 30 MG, ROPIVacaine 0.5% PF 60 ML, EPINEPHrin... INT ART ONE; -OXYC5CAP PO; -POLY17PO29 PO; -TRAM50TA PO; +TRANEXAMIC ACID 1,000 MG in IV NS 50ML -- 1ST BAG INJ ONE; +TRANEXAMIC ACID 1,000 MG in IV NS 50ML -- 2ND BAG INJ ONE; -WARF-31 PO; +ceFAZolin SODIUM IV Push 1 GM VIAL. IVP PRN; +fentaNYL PF VIAL 100 MCG/2 ML VIAL IVP PRN
[2020-12-09] MEDS ORDERED: PROPOFOL 10 MG/ML (20ML) VIAL. IV ONE (11:11)
[2020-12-09] MEDS ORDERED: DEXAMETHASONE SOD PHOS 4 MG/ML VIAL ONE (11:11)
[2020-12-09] MEDS ORDERED: ONDANSETRON PF 4 MG/2 ML VIAL. ONE (11:11)
[2020-12-09] MEDS ORDERED: LIDOCAINE 2% PF 5 ML VIAL. ONE (11:11)
[2020-12-09] MEDS ORDERED: WARF-31 PO (11:23)
[2020-12-09] MEDS ORDERED: MELO15TA6 PO (11:23)
[2020-12-09] MEDS: IV RINGERS,LACTATED 1000ML 1,000 ML IV SCH ×2 (11:35→15:20)
[2020-12-09 12:02] LABS: PROTHROMBIN TIME PATIENT 12.5 SEC (11.7-14.0)
[2020-12-09] MEDS ORDERED: fentaNYL PF VIAL 250 MCG/5 ML VIAL ONE (12:06)
[2020-12-09] MEDS ORDERED: MIDAZOLAM HCL/PF 2 MG/2 ML VIAL. ONE (12:21)
[2020-12-09] MEDS ORDERED: VANCOMYCIN 1 GM VIAL. ONE (12:30)
[2020-12-09] MEDS ORDERED: TRANEXAMIC ACID in NS IVPB 100 ML ONE (13:09)
[2020-12-09] MEDS ORDERED: SEVOFLURANE > 120 MINUTES. IH ONE (13:35)
[2020-12-09] MEDS ORDERED: PHENYLEPHRINE in 0.9% NACL PF 1 MG/10 ML SYRINGE. IV ONE (13:49)
[2020-12-09] MEDS ORDERED: HYDROmorphone 2 MG/ML VIAL ONE (13:55)
[2020-12-09] MEDS ORDERED: PROCHLORPERAZINE 10 MG/2 ML VIAL. ONE (15:15)
[2020-12-09] MEDS ORDERED: CALCIUM CARBONATE 500 MG TAB.CHEW PO PRN (15:15)
[2020-12-09] MEDS ORDERED: diphenhydrAMINE 50 MG/ML VIAL IVP PRN (15:15)
[2020-12-09] MEDS ORDERED: ZOLPIDEM 5 MG TABLET. PO PRN (15:15)
[2020-12-09] MEDS ORDERED: fentaNYL PF VIAL 100 MCG/2 ML VIAL IVP PRN (15:15)
[2020-12-09] MEDS ORDERED: PROCHLORPERAZINE 5 MG TABLET. PO PRN (15:15)
[2020-12-09] MEDS ORDERED: DEXTROSE 50% 25 GM / 50ML DISP.SYRIN. IV PRN (15:15)
[2020-12-09] MEDS ORDERED: 0.9 % SODIUM CHLORIDE 10 ML DISP.SYRIN. IV PRN (15:15)
[2020-12-09] MEDS ORDERED: MORPHINE SULFATE 2 MG/ML INJ. IVP PRN (15:15)
[2020-12-09] MEDS: PROCHLORPERAZINE 10 MG/2 ML VIAL. IVP PRN ×2 (15:20→15:35)
--- NOTE | 2020-12-09 15:44 | PDOC4 ---
Operative Note Operative Note Date of surgery: 12/09/2020 Preoperative diagnosis: Degenerative joint disease right hip Postoperative diagnosis: Same Operative procedure: Right total hip arthroplasty with anterior approach Surgeon Jaden Water Plumber: Dallin schafer Anesthesia: General Estimated blood loss: 400 cc Complications: None Drains: None Operative indications: Please see my orthopedic clinic note and dictated history and physical for detailed operative indications and note that we covered risks benefits postoperative course of the procedure, noting that she has been through a hip replacement procedure before and is very pleased with the results. We did discuss the goal of equalizing her leg lengths and that may not be entirely possible due to stability concerns which would override. We specifically discussed the possibility of infection leg length inequality, nerve or blood vessel damage premature wear or loosening medical or other anesthetic comp lications among others. All her questions were answered and she wishes to proceed with surgical evaluation and treatment having given informed consent Operative text: Patient was identified procedure verified patient placed in the supine position on the Galt fracture table after adequate amounts of general anesthesia were administered. All bony prominences were well-padded and left hip was prepped and draped in the standard sterile fashion. After timeout was performed patient procedure identified and verified an incision was made just distal to the anterior superior iliac spine running along the tensor fascia betzaida for a distance of about 6 inches. Fascia was incised tensor fascia betzaida was taken laterally and circumflex vessels were located and coagulated and the anterior capsule was exposed with the rectus femoris gently retracted medially along with the underlying fascia that was dissected free. Capsule was split in a T-shaped incision and superior aspect of the capsule was excised and further superior release was carried out with the hip in external rotation. Hip was returned to 40 degrees external rotation and a napkin ring cut was made with an Avenir Anitha broach for reference napkin ring was removed and femoral head was removed and sized. Reaming was carried out to a size 49 with a size 50 Biomet G7 acetabular shell was placed in proper version under fluoroscopic guidance and excellent scratch fit was noted. A 36 mm vitamin E liner was impacted into place. Femur was brought into maximum external rotation extension and adduction and release was carried out at the 11 o'clock position to free up the femur and retractors were placed medially and above the greater trochanter for maximum femoral exposure box osteotome was used along with the rattail rasp and successive size broaching up to a size 2 which provided excellent stability and fit within the canal. Calcar reaming was carried out and trial fitting with a +0 36 mm head to reproduce leg length and offset appropriately under fluoroscopic guidance and matched leg lengths and offset to the contralateral left hip. Trial components were removed and a size 2 standard offset collared Avenir stem was impacted into place with a +0 ceramic 36 mm head. Excellent stability and range of motion were noted and leg length and offset were reproduced closely according to preoperative measurements and measurements from the contralateral side. Thorough irrigation carried out with normal saline solution and pulse lavage. Intra-articular mixture was injected subperiosteally throughout the joint capsule and subcutaneous areas and 1 g vancomycin sprinkled throughout the joint capsule area. Fascia was closed with #1 PDS strata fix suture in a running fashion subcutaneous closure with buried Vicryl skin closure with subcuticular Monocryl and a demetrio dressing was applied. Patient was returned to recovery room in stable condition having tolerated the procedure well. Dallin schafer was present for the procedure and assisted in the patient positioning prepping draping retraction closure and dressings MILLA BARRON MD Dec 09, 2020 15:44
[2020-12-09] MEDS ORDERED: WARFARIN 5 MG TABLET. PO ONE (16:00)
[2020-12-09] MEDS ORDERED: WARFARIN 7.5 MG TABLET. PO ONE (16:00)
[2020-12-09] MEDS ORDERED: ALBUTEROL SULFATE 2.5 MG/3 ML NEBU. NEB PRN (16:00)
[2020-12-09] MEDS: ONDANSETRON PF 4 MG/2 ML VIAL. IVP SCH (16:35)
[2020-12-09] MEDS: FERROUS SULFATE 325 MG TABLET. PO SCH (16:36)
[2020-12-09] MEDS: ceFAZolin SODIUM IV Push 1 GM VIAL. IVP SCH (16:45)
--- NOTE | 2020-12-09 17:00 | NUR ---
received from recovery. she is awake but confused to the time and situation. she has good sensation motion and pulses bilateral lower extremities. daughter at bedside. dressing to anterior right hip is clean dry and intact.
[2020-12-09] MEDS: ONDANSETRON ODT 4 MG TAB.RAPDIS. PO SCH (18:00)
--- NOTE | 2020-12-09 18:29 | PDOC ---
PROGRESS NOTES Date of Service DATE: 12/09/20 TIME: 18:27 Subjective Subjective Problems overnight: Some burning pain over hip incision otherwise minimal complaints Objective Vital Signs Vital Signs Date Time Temp Pulse Resp B/P (MAP) Pulse Ox O2 Delivery O2 Flow Rate FiO2 12/09/20 17:15 92 Nasal Cannula 2.0 12/09/20 16:44 18 12/09/20 16:00 96 133/79 12/09/20 15:30 97.2 97.2 Physical Exam Leg lengths equal distal neurovascular status intact demetrio dressing intact Labs Laboratory Tests Test 12/09/20 11:30 Prothrombin Time 12.5 SEC (11.7-14.0) Prothromb Time International Ratio 0.9 (0.8-1.1) Laboratory Tests Test 12/09/20 11:30 Prothrombin Time 12.5 SEC (11.7-14.0) Prothromb Time International Ratio 0.9 (0.8-1.1) Imaging Intraoperative fluoroscopic images show equal leg lengths well-placed total hip arthroplasty components Assessment Assessment POD#0 total hip arthroplasty right Plan Plan of Care Mobilize weightbearing as tolerated, warfarin anticoagulation Justicifation of Admission Dx: Justifications for Admission: Justification of Admission Dx: N/A MILLA BARRON MD Dec 09, 2020 18:29
[2020-12-09] MEDS: IV NORMAL SALINE 1000ML BAG 1,000 ML IV SCH (20:23)
[2020-12-10] MEDS: ceFAZolin SODIUM IV Push 1 GM VIAL. IVP SCH ×2 (00:11→05:47)
[2020-12-10] MEDS: ONDANSETRON ODT 4 MG TAB.RAPDIS. PO SCH ×3 (00:11→12:00)
[2020-12-10] MEDS: ONDANSETRON PF 4 MG/2 ML VIAL. IVP SCH ×3 (00:11→12:00)
[2020-12-10] MEDS: oxyCODONE IR 5 MG TABLET PO PRN (03:24)
[2020-12-10 03:26] VITALS: BP 115/52
[2020-12-10 04:27] LABS: PROTHROMBIN TIME PATIENT 14.7 SEC (11.7-14.0)
[2020-12-10 05:44] VITALS: BP 114/74
[2020-12-10] MEDS: traMADol 50 MG TABLET PO SCH ×4 (05:46→23:14)
[2020-12-10] MEDS ORDERED: GABAPENTIN 100 MG CAPSULE. PO SCH (06:00)
[2020-12-10] MEDS ORDERED: MAGNESIUM HYDROXIDE 2,400 MG/30 ML ORAL.SUSP. PO PRN (06:00)
[2020-12-10] MEDS ORDERED: POLY17PO29 PO (07:35)
[2020-12-10 07:44] LABS: HEMATOCRIT 27.9 % (36.0-47.0); HEMOGLOBIN 9.1 g/dL (12.0-15.5)
[2020-12-10] MEDS: POLYETHYLENE GLYCOL 3350 17 GM PACKET. PO SCH (09:02)
[2020-12-10] MEDS: SENNOSIDES/DOCUSATE 8.6/50MG TABLET. PO SCH (09:03)
[2020-12-10] MEDS: ACETAMINOPHEN 500 MG TABLET PO SCH ×3 (09:03→21:11)
[2020-12-10] MEDS: MELOXICAM 7.5 MG TABLET PO SCH (09:03)
[2020-12-10] MEDS: FERROUS SULFATE 325 MG TABLET. PO SCH ×2 (09:03→17:44)
[2020-12-10] MEDS: MULTIVITAMIN with MINERAL TABLET. PO SCH (09:03)
[2020-12-10] MEDS: LISINOPRIL 20 MG TABLET PO SCH (09:08)
--- NOTE | 2020-12-10 09:34 | NUR ---
Pharmacy Warfarin Dosing Note S:Pharmacy consulted to assist with anticoagulation therapy started 12/09/20 with target INR: 1.6 - 2.5 O:DEJONTODD Melchor is a 60 year old F with CALVIN, right LABS: Last INR: 1.2 Last HGB: 9.1 Last HCT: 27.9 Last PLT: - Last dose of 5 mg given on 12/09/20 at 1635 Drug Interaction Changes: New Interacting Drug Ongoing Drug Interactions: Mobic A:INR of 1.2 is below desired range. Target range for this patient is: 1.6 - 2.5 P: Warfarin dose: 3 mg Today at 1600 Bridge Therapy: None Next INR due 12/11/20 Pharmacy anticoagulation service will continue to follow. ALESIA DURÁN [facility], 12/10/20 [id number]
[2020-12-10 10:30] VITALS: BP 146/76
[2020-12-10] MEDS ORDERED: ONDANSETRON PF 4 MG/2 ML VIAL. IVP PRN (12:00)
[2020-12-10] MEDS ORDERED: ONDANSETRON ODT 4 MG TAB.RAPDIS. PO PRN (12:00)
--- NOTE | 2020-12-10 13:13 | PDOC ---
PROGRESS NOTES Date of Service DATE: 12/10/20 TIME: 13:11 Subjective Subjective Problems overnight: Pain well controlled, getting up and around well. Upper thigh muscles are tight and sore but hip feels better with ambulation Objective Vital Signs Vital Signs Date Time Temp Pulse Resp B/P (MAP) Pulse Ox O2 Delivery O2 Flow Rate FiO2 12/10/20 12:30 16 12/10/20 09:08 92 152/81 12/10/20 07:20 Room Air 12/10/20 06:16 2.0 12/10/20 05:46 94 12/10/20 05:44 98.8 98.8 Physical Exam Leg lengths equal, distal neurovascular status intact demetrio dressing intact Labs Laboratory Tests Test 12/09/20 11:30 12/10/20 03:15 Prothrombin Time 12.5 SEC (11.7-14.0) 14.7 SEC (11.7-14.0) Prothromb Time International Ratio 0.9 (0.8-1.1) 1.2 (0.8-1.1) Hemoglobin 9.1 g/dL (12.0-15.5) Hematocrit 27.9 % (36.0-47.0) Mean Corpuscular Hemoglobin Concent 33 g/dL (31-37) Laboratory Tests Test 12/10/20 03:15 Hemoglobin 9.1 g/dL (12.0-15.5) Hematocrit 27.9 % (36.0-47.0) Mean Corpuscular Hemoglobin Concent 33 g/dL (31-37) Prothrombin Time 14.7 SEC (11.7-14.0) Prothromb Time International Ratio 1.2 (0.8-1.1) Assessment Assessment POD#1 total hip arthroplasty Plan Plan of Care Continue mobilize with physical therapy weightbearing as tolerated Warfarin anticoagulation per pharmacy Likely home with outpatient physical therapy on discharge Justicifation of Admission Dx: Justifications for Admission: Justification of Admission Dx: N/A MILLA BARRON MD Dec 10, 2020 13:13
[2020-12-10] MEDS: IV NORMAL SALINE 1000ML BAG 1,000 ML IV SCH (15:15)
[2020-12-10] MEDS ORDERED: BISACODYL 10 MG SUPP.RECT. PR PRN (16:00)
[2020-12-10] MEDS ORDERED: WARFARIN 3 MG TABLET. PO ONE (16:00)
[2020-12-10 18:00] VITALS: BP 120/71
[2020-12-10] MEDS ORDERED: TRAM50TA PO (21:06)
--- NOTE | 2020-12-10 21:08 | DISCH ---
DISCHARGE INSTRUCTIONS Condition on Discharge Condition on Discharge: Stable Activity After Discharge Activity Instructions for Disc: Progressive ambulation Exercise Instruction after Dis: Exercise per therapy Weight Bearing Status after Di: As tolerated Diet after Discharge Diet after Discharge: Regular Wound Incision Care Wound/Incision Care: Ice to area for comfort, Do not change dressing (Maintain demetrio dressing, call if saturated, otherwise remove suction box when it stops working and cut tail of dressing and tape over to maintain seal) Community/Resources/Services Services at Discharge: PT EVALUATE & TREAT Contacting the DRAsha after DC Call your doctor for: Concerns you may have Follow-Up Follow up with: Dr. Stanley or Sailaja 2 weeks postop Warfarin Follow-Up Warfarin Follow UP: [facility] [place] pharmacy to direct warfarin dosage and testing MILLA STANLEY MD Dec 10, 2020 21:08
[2020-12-11] MEDS: ACETAMINOPHEN 500 MG TABLET PO SCH ×2 (02:54→07:59)
[2020-12-11] MEDS: oxyCODONE IR 5 MG TABLET PO PRN ×3 (03:04→15:41)
[2020-12-11] MEDS: traMADol 50 MG TABLET PO SCH ×2 (05:52→12:17)
[2020-12-11 06:13] VITALS: BP 151/89
[2020-12-11 06:32] VITALS: BP 147/81
[2020-12-11] MEDS: POLYETHYLENE GLYCOL 3350 17 GM PACKET. PO SCH (07:57)
[2020-12-11] MEDS: MULTIVITAMIN with MINERAL TABLET. PO SCH (07:58)
[2020-12-11] MEDS: FERROUS SULFATE 325 MG TABLET. PO SCH (07:59)
[2020-12-11] MEDS: MELOXICAM 7.5 MG TABLET PO SCH (07:59)
[2020-12-11] MEDS: LISINOPRIL 20 MG TABLET PO SCH (07:59)
[2020-12-11] MEDS: SENNOSIDES/DOCUSATE 8.6/50MG TABLET. PO SCH (08:01)
--- NOTE | 2020-12-11 08:49 | PDOC ---
PROGRESS NOTES Date of Service DATE: 12/11/20 TIME: 08:46 Subjective Subjective Problems overnight: More pain today, requiring some oxycodone this morning, felt that there was a lump on her leg Objective Vital Signs Vital Signs Date Time Temp Pulse Resp B/P (MAP) Pulse Ox O2 Delivery O2 Flow Rate FiO2 12/11/20 08:00 Room Air 12/11/20 07:59 83 147/81 12/11/20 07:58 20 12/11/20 06:22 95 2.0 12/11/20 06:13 98.3 98.3 Physical Exam Lisa dressing intact leg lengths equal she has some expected swelling in the thigh but compartments are soft no lump by her knee currently knee ligaments are stable she has good range of motion distal neurovascular status intact Labs Laboratory Tests Test 12/09/20 11:30 12/10/20 03:15 Prothrombin Time 12.5 SEC (11.7-14.0) 14.7 SEC (11.7-14.0) Prothromb Time International Ratio 0.9 (0.8-1.1) 1.2 (0.8-1.1) Hemoglobin 9.1 g/dL (12.0-15.5) Hematocrit 27.9 % (36.0-47.0) Mean Corpuscular Hemoglobin Concent 33 g/dL (31-37) Assessment Assessment POD#2 right total hip arthroplasty Plan Plan of Care Continue mobilize with physical therapy, add oxycodone to pain regimen for home Home with outpatient physical therapy planned for today Justicifation of Admission Dx: Justifications for Admission: Justification of Admission Dx: N/A MILLA BARRON MD Dec 11, 2020 08:49
[2020-12-11] MEDS ORDERED: OXYC5CAP PO (08:50)
[2020-12-11 09:52] LABS: HEMATOCRIT 28.6 % (36.0-47.0); HEMOGLOBIN 9.4 g/dL (12.0-15.5)
--- NOTE | 2020-12-11 11:17 | NUR ---
Pharmacy Warfarin Dosing Note S:Pharmacy consulted to assist with anticoagulation therapy started 12/09/20 with target INR: 1.6 - 2.5 O:TODD ASHFORD Melchor is a 60 year old F with CALVIN right LABS: Last INR: 1.2 Last HGB: 9.1 Last HCT: 27.9 Last PLT: - Last dose of 5 mg given on 12/09/20 at 1635 Previous Regimen: Vitamin K given: N Drug Interaction Changes: New Interacting Drug Ongoing Drug Interactions: Mobic A:INR of 1.3 is below desired range. Target range for this patient is: 1.6 - 2.5 P: Warfarin dose: 3 mg Prior to Discharge Bridge Therapy: None Next INR due Tuesday w/ home health Pharmacy anticoagulation service will continue to follow. GILMER ZHANG [facility], 12/11/20 [id number]
[2020-12-11 12:18] VITALS: BP 138/81
[2020-12-11] MEDS ORDERED: WARF-31 PO (13:28)
[2020-12-11] MEDS ORDERED: WARFARIN 5 MG TABLET. PO ONE (14:00)
--- NOTE | 2020-12-11 16:00 | NUR ---
AWAITING DAUGHTER. reviewed discharge instructions regarding medications; new medications (pain and Coumadin )next time and side effects. reviewed restrictions to activities of daily living such as bathing dressing. instructed to follow hip precautions until follow up and handout given. all questions answered given follow up with Kole Menard and PT and lab draws. discharged to home with daughter.
--- NOTE | 2020-12-12 17:07 | PATHOLOGY ---
[facility] Accession Number: [id number] . 01 Material submitted: . hip - RIGHT HIP AND BONE TISSUE. Modifiers: right . 01 Clinical history: . OSTEOARTHRITIS RIGHT TOTAL HIP ARTHROPLASTY ANTERIOR . 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 (JPM:anna 12/12/2020) QMS 12/12/2020 1359 Local . 02 Electronically signed: . Johan Estrada MD, Pathologist NPI- [id number] . 01 Gross description: . The specimen is received in formalin, labeled "Yoon Sifuentes, right hip bone and tissue". Received is a femoral head, which is received in two pieces, measuring 5.0 x 5.0 x 3.3 cm upon reconstruction. The articular surface is pale bernal and smooth to irregular in contour with evidence of eburnation. Several osteophytes are identified. Sectioning reveals yellow-bernal cut surfaces with no grossly distinct nodules or lesions. The specimen is submitted representatively in cassette A1, following decalcification. (CAA; 12/11/2020) QAC/QAC 12/11/2020 0836 Local . 02 Pathologist provided ICD-10: M16.11, M87.851 . 02 CPT . 896378, 104366 Specimen Comment: A courtesy copy of this report has been sent to [phone] Specimen Comment: Report sent to Performed at: 01 [facility] [address], [place] [id number] MD Wilmer Clement MD Phone: [phone] Performed at: 02 [facility] [id number] MD Johan Estrada MD Phone: [phone]
--- NOTE | 2020-12-12 19:09 | DS ---
DATE OF DISCHARGE: 12/11/2020 PRINCIPAL DIAGNOSIS: Degenerative joint disease, right hip. PROCEDURE: Right total hip arthroplasty, anterior. DISPOSITION: Home with outpatient physical therapy, weightbearing as tolerated. Avoid extremes of range of motion. Maintain PHIL dressing. Call if saturated, otherwise remove suction machine when it stops, cut tail of dressing and tape over to maintain seal. Call if saturated. DISPOSITION MEDICATIONS: Include oxycodone 5 mg p.o. q.4 hours p.r.n. severe pain, tramadol 50 mg p.o. q.4 hours p.r.n. moderate pain, warfarin as directed by anticoagulation clinic. Continue preoperative medications aside from naproxen, which was stopped. FOLLOWUP: Follow up with Dr. Stanley or Sailaja 2 weeks postoperatively. BRIEF DESCRIPTION OF HOSPITAL COURSE: The patient underwent uneventful anterior approach total hip arthroplasty. She said in terms of her pain relief, was somewhat better postoperatively than preoperatively, but did have some burning pain around the incisional area, which was reasonably well controlled with pain medications, somewhat increased with therapy, but again well controlled on her eventual discharge regimen. She got up and around well with therapy with ambulation and transfers. Otherwise remained stable from medical standpoint and was discharged home in stable condition with planned outpatient followup in terms of physical therapy and follow for [facility]. SHELLY DR: Latia TID: [id number]
== END 2020-12-11 16:25 | disposition home or self-care (01) ==
LOC: SURG 10:49 → 4 SOUTHEST 15:06 → INTOOBSV 15:06
PROVIDERS: ADMIT Orthopaedic Surgery; ATTEND Orthopaedic Surgery
DX: M16.11 Unilateral primary osteoarthritis, right hip (principal); Z79.01 Long term (current) use of anticoagulants
CPT/HCPCS: 27130; 36415; 85014; 85018; 85610; 86850; 86900; 86901; 96374; 96375; 96376; 97116; 97150; 97162; 97165; 97530; 97535; A4213; A4930; A6223; A6258; A6402; A6550; C1755; C1776; G0378; G0379; J0171; J0690; J0780; J1100; J1170; J1885; J2250; J2270; J2370; J2405; J2704; J2795; J3010; J3370; 76000

== ENCOUNTER → 2020-12-22 | Outpatient (CLI) | payer BC ==
[2020-12-11 12:18] VITALS: BP 138/81
[~2020-12-22] MED LIST changes: -ACETAMINOPHEN 500 MG TABLET PO PRN; -GABAPENTIN 300 MG CAPSULE. PO PRN; -HYDROmorphone 2 MG/ML VIAL IVP PRN; +MELO15TA6 PO; -MELOXICAM 7.5 MG TABLET PO PRN; -MORPHINE SULFATE 2 MG/ML INJ. IVP PRN; -MORPHINE SULFATE 5 MG, KETOROLAC 30MG VIAL 30 MG, ROPIVacaine 0.5% PF 60 ML, EPINEPHrin... INT ART ONE; +OXYC5CAP PO; +POLY17PO29 PO; +TRAM50TA PO; -TRANEXAMIC ACID 1,000 MG in IV NS 50ML -- 1ST BAG INJ ONE; -TRANEXAMIC ACID 1,000 MG in IV NS 50ML -- 2ND BAG INJ ONE; +WARF-31 PO; -ceFAZolin SODIUM IV Push 1 GM VIAL. IVP PRN; -fentaNYL PF VIAL 100 MCG/2 ML VIAL IVP PRN
[2020-12-22 12:49] LABS: PROTHROMBIN TIME PATIENT 21.6 SEC (11.7-14.0)
== END ==
LOC: SPEC 12:29
PROVIDERS: ATTEND Orthopaedic Surgery
DX: Z79.01 Long term (current) use of anticoagulants (principal)
CPT/HCPCS: 36415; 85610

== ENCOUNTER → 2020-12-29 | Outpatient (CLI) | payer BC ==
[2020-12-11 12:18] VITALS: BP 138/81
[2020-12-29 12:48] LABS: PROTHROMBIN TIME PATIENT 19.2 SEC (11.7-14.0)
== END ==
LOC: SPEC 12:22
PROVIDERS: ATTEND Orthopaedic Surgery
DX: Z51.81 Encounter for therapeutic drug level monitoring (principal); Z79.01 Long term (current) use of anticoagulants
CPT/HCPCS: 36415; 85610